=== PATIENT | male | born 1995 | race Caucasian/White ===

== ENCOUNTER 2023-05-12 11:23 | Emergency (ER) | payer BC, SELFPAY ==
[2023-05-12 11:29] VITALS: BP 133/84; PULSE 62; RESP 18; TEMP 35.7; O2SAT 97
--- NOTE | 2023-05-12 11:38 | ED.GENADUL_ITS ---
HPI General Date/Time Provider Initiated Documentation: 05/12/23 11:37 . 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 Quality described as throbbing/stinging, no radiation to gross contamination, inability to move the finger, numbness at distal finger. Severity is described as 5-6/10. Palliating factors include nothing specific. Provoking factors include nothing specific. Events leading up to the incident/Associated Symptoms: Patient unsure of last Tdap. Patient not anticoagulated. Related Data Home Medications Medication Instructions Recorded Confirmed Unknown [No Known Home Meds] 05/12/23 05/12/23 Allergies Allergy/AdvReac Type Severity Reaction Status Date / Time ibuprofen [From Advil] AdvReac Intermediate rash Verified 05/12/23 11:33 General Stated Complaint: Laceration KATHI: 4 Review of Systems All systems reviewed & are unremarkable except as noted in HPI and below Exam Narrative Exam Narrative: GENERAL APPEARANCE: Well-nourished, non-toxic, awake and alert, atraumatic, no acute distress. SKIN: Warm, pink, dry, intact, without rashes/lesions/ulcerations. HEAD: Normocephalic, atraumatic, normal hair distribution for gender/age. EYES: Pupils PERRLA, EOMs intact without nystagmus, normal conjunctiva, no exudates on lids/lashes. ENT: Nares patent, no circumoral cyanosis, no facial swelling NECK: Supple, trachea midline, painless cervical ROM. LUNGS/CHEST: Non-labored respirations, normal A/P diameter, symmetrical expansion, no chest wall deformity HEART (CV/PV): Regular rate, L radial pulse 2+, no peripheral edema, no JVD. ABDOMEN: Soft, non-distended, no guarding. MSK: Normal ROM, no swelling/deformity to bilateral UEs or LEs, moving all extremities without weakness, no cyanosis, spine midline without tenderness, normal curvature. L Hand: 2 cm curvilinear irregular laceration over the PIP joint of the left third finger, no active bleeding, no tendon involvement, no foreign bodies visualized, able to range the finger, sensation intact distally NEURO: Mental Status AAOx4 - alert to person, place, time, events No facial droop, no forehead involvement. Motor: No focal weakness - strength 5/5 in bilateral UEs and LEs, proximal and distal, symmetric. Sensory: sensation intact to light touch globally. Gait normal: patient ambulated without ataxia into ED room. PSYCH: euthymic, cooperative, pleasant, appropriate speech Course Vital Signs Vital signs: Vital Signs Temperature 35.7 C L 05/12/23 11:29 Pulse 62 05/12/23 11:29 Respiratory Rate 18 05/12/23 11:29 Blood Pressure 133/84 05/12/23 11:29 Pulse Oximetry 97 05/12/23 11:29 Temperature 35.7 C L 05/12/23 11:29 Temperature Source Temporal Artery Scan 05/12/23 11:29 Pulse 62 05/12/23 11:29 Respiratory Rate 18 05/12/23 11:29 Respiratory Effort Normal 05/12/23 11:35 Blood Pressure 133/84 05/12/23 11:29 Pulse Oximetry 97 05/12/23 11:29 Pain Level 5 05/12/23 11:29 Procedures Laceration Laceration 1: Site: hand Side (If applicable): left Size (cm): 2 Description: linear Depth: simple, single layer Local Anesthetic: Lidocaine 1% Amount of anesthesia used (mL): 5 Pre-repair: wound explored, irrigated extensively and deep structures intact Skin layer closed with: nylon Size (cm): 4-0 Number of sutures: 5 Technique: simple, interrupted Medical Decision Making This dictation utilizes [id number] dictation software and may contain unedited grammatical errors. 27 y/o M presents to ED today with a chief complaint of L 3rd finger laceration, utility knife at job site, R-hand dominant. Patient unsure of last Tdap, is able to move the finger, denies active bleeding, no numbness or tingling distally. Patients' medical history: Negative, otherwise healthy.. Family and social history: Self-employed as a contractor, otherwise noncontributory. Pertinent exam findings / vital signs include L Hand: 2 cm curvilinear irregular laceration over the PIP joint of the left third finger, no active bleeding, no tendon involvement, no foreign bodies visualized, able to range the finger, sensation intact distally. Differential / pathologies of concern include laceration, tendon laceration, foreign body. Diagnostic studies of: -None. Interventions of: -Suture repair and prefabricated finger splint. ED Course/Assessment/Plan: 27-year-old male presents with a left third finger laceration on a utility knife on job site, repaired by 5 sutures of 4-0 Ethilon and placed in a prefabricated foam finger splint for the first couple days to help the wound heal as it is over a knuckle and could have potential to tear through suture sites. Patient tolerated the procedure well he did get a little lightheaded due to his fear of needles, a had no other adverse reactions to local anesthesia or procedure. I counseled him on return for suture removal in 7 to 10 days and to watch for signs of infection and return early for any. Findings not consistent with tendon rupture, foreign body, neurovascular comprom ise. Disposition of laceration of left middle finger. Patient verbalized understanding of the plan and return to ED criteria and engaged in shared decision making. Medical Records Medical records reviewed: Yes I reviewed the patient's medical records. Quality:[facility] Health Related Social Needs: No Data to Display [facility] All Active Problems (Updated 05/12/23 @ 12:27 by FILOMENA Vilchis) Laceration of left middle finger (Acute) Social History Smoking/Tobacco Use Status: Never Smoking risk assessment performed?: Yes Alcohol Intake: current Alcohol Intake frequency: 3 or more drinks per day Alcohol type: beer Substance use type: does not use Housing: house Do you feel safe at home: Yes Do you feel safe in your relationship?: Yes PAWSS Have you Been Recently Intoxicated or Drunk Within the Last 30 days?: No Have you Ever Experienced Previous Episodes of Alcohol Withdrawal?: No Have you ever Experienced Withdrawal Seizures?: No Have you ever Experienced Delirium Tremens(DT)s?: No Have you ever undergone Alcohol Rehabilitation Treatment (i.e, inpt ot outpatient treatment programs)?: No Have you ever Experienced Blackouts?: No Have you ever Combined Alcohol with other Downers within the last 90 days?: No Have you ever Combined Alcohol with any other Substance of Abuse during the last 90 days?: No Result: 0 Discharge Plan Disposition Patient Disposition: Home Condition: Stable Discharge Details Clinical Impression: Laceration of left middle finger Primary Care Provider: None,None ED Provider: Tonny Baugh Home Meds and New Rx's Prescriptions: No Action No Known Home Meds Discharge Instructions Instructions: Finger Laceration (ED) Additional Instructions: You were seen in the emergency department for the laceration of your left middle finger the laceration was about 2 cm over the PIP knuckle. This was repaired by 5 sutures. The sutures will need to be removed in 7 to 10 days, you can return to the ER for the suture removal it is included with this visit. We updated your tetanus status today. No antibiotics are required, please remain in the splint for the first 2 to 4 days to let the wound adhered to itself, any forceful bending of the finger making a fist may rip the sutures in the first couple days. Please watch for signs of infection like increasing redness, drainage of pus from the area, red streaking up your hand and forearm, fever and return for any of these. Discharge Data Discharge Date/Time-TO BE ENTERED AT DEPARTURE: 05/12/23 12:49 Discharge Physician: Tonny Baugh
[2023-05-12 12:48] VITALS: BP 145/83; PULSE 76; RESP 18
== END 2023-05-12 12:49 | disposition home or self-care (01) ==
LOC: ER 13:00
PROVIDERS: Emergency Provider Physician Assistant
DX: S61.213A Laceration without foreign body of left middle finger without damage to nail, initial encounter (principal); W26.0XXA Contact with knife, initial encounter; Y93.H3 Activity, building and construction; Y99.0 Civilian activity done for income or pay; Y92.89 Other specified places as the place of occurrence of the external cause; Z23 Encounter for immunization
CPT/HCPCS: 12001; 90471; 90715; 99283

== ENCOUNTER 2023-05-20 12:56 | Emergency (ER) | payer BC, SELFPAY ==
[2023-05-20 12:59] VITALS: BP 162/88; PULSE 71; RESP 18; TEMP 36.9; O2SAT 100
== END 2023-05-20 13:53 | disposition left against medical advice (07) ==
DX: Z53.21 Procedure and treatment not carried out due to patient leaving prior to being seen by health care provider (principal)